=== PATIENT | female | born 1970 | race Caucasian/White ===

== ENCOUNTER 2018-09-26 15:59 | Emergency (ER) | payer OTHER, SELFPAY ==
[2018-09-26 16:00] VITALS: BP 143/84; PULSE 118; RESP 16; TEMP 36.3; O2SAT 100; BMI 23.6
--- NOTE | 2018-09-26 16:38 | EKG12_ITS ---
Test Reason : PALPS Blood Pressure : / mmHG Vent. Rate : 108 BPM Atrial Rate : 108 BPM P-R Int : 180 ms QRS Dur : 090 ms QT Int : 354 ms P-R-T Axes : 084 079 077 degrees QTc Int : 474 ms Sinus tachycardia Otherwise normal ECG Confirmed by PK GROVER, FARA ([id number]), telegraph editor IKE CASTELLANOS ([id number]) on 09/29/2018 1:13:43 PM Referred By: BARBARA Confirmed By:FARA WHITTINGTON MD
[2018-09-26 17:01] LABS: Absolute Lymphocyte Count 1.01 X10^3/ul (0.83-4.51); Absolute Neutrophil Count 13.3 X10^3/uL (2.0-7.7); Basophil# 0.02 X10^3/uL; Basophil% 0.1 % (0-1); Eosinophil# 0.01 X10^3/uL; Eosinophils% 0.1 % (0-5); Hematocrit 38.4 % (37-47); Hemoglobin 13.1 g/dl (12.0-15.0); Lymphocyte # 1.01 X10^3/ul (4.0); Lymphocyte % 6.7 % (19-41); Mean Corp Hgb Conc 34.1 g/gl (32-36); Mean Corpuscular Hgb 31.3 pg (27.0-32.0); Mean Corpuscular Volume 91.9 fL (81-99); Monocyte# 0.68 X10^3/uL; Monocyte% 4.5 % (0-10); Neutrophil # 13.28 X10^3/uL (2.7-7.7); Neutrophil % 88.4 % (47-70); Platelet Count 313 K/mm3 (150-450); RBC Distribution Width CV 12.8 % (11.6-14.6); RBC Distribution Width SD 42.7 fl (35.1-43.9); Red Blood Count 4.18 M/mm3 (4.2-5.4)
[2018-09-26 17:04] LABS: POSITIVE COUNT NO; POSITIVE DIFFERENTIAL NO; POSITIVE MORPHOLOGY NO
[2018-09-26 17:17] LABS: Anion Gap 5 (5-15); BUN 17 mg/dL (7-18); BUN/Creat Ratio 17.8 RATIO (10-20); Calcium,Total 8.7 mg/dL (8.5-10.1); Chloride 106 mmol/L (98-107); Creatinine, Serum 0.95 mg/dL (0.55-1.02); EST Glomerular Filtration Rate 67 mL/min (>60); Est Glom Filt Rate - Afr Amer 81 mL/min (>60); Estimated Creatinine Clearance 67.29 ml/min; Glucose 162 mg/dL (74-106); Potassium 3.7 mmol/L (3.5-5.1); Sodium Level 137 mmol/L (136-145)
--- NOTE | 2018-09-26 17:20 | RAD_ITS ---
STUDY: X-RAY CHEST REASON FOR EXAM: Female, 47 years old. Chest palpitations TECHNIQUE: AP COMPARISON: 12/17/2015 FINDINGS: The lungs are clear and expanded. There is no demonstrated pleural abnormality. Normal size heart. Normal mediastinum and adelina. Normal visualized pulmonary arteries. Normal visualized aortic arch and descending thoracic aorta. Normal visualized thoracic spine. Normal visualized ribs, clavicles, and shoulders. There is no demonstrated abnormality of the visualized soft tissue structures of the upper abdomen. RAD/Chest 1 View (Portable) IMPRESSION: Nonacute portable x-ray examination of the chest. Electronically Signed: Chu Canchola MD at 17:26 EDT , Service support ,
[2018-09-26 17:58] VITALS: BP 119/75; PULSE 87; RESP 21; O2SAT 100
--- NOTE | 2018-09-26 18:41 | CT_ITS ---
STUDY: CT BRAIN WITHOUT CONTRAST REASON FOR EXAM: Female, 47 years old. Confusion. RADIATION DOSAGE (If Supplied By Facility): CTDIvol = ( 44.99 ) mGy, DLP = ( 796.11 ) mGycm TECHNIQUE: Transaxial CT imaging of the brain was performed without administration of intravenous contrast material. Individualized dose optimization techniques were used for this CT. 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 Normal calvarium. Normal size ventricles and extra-axial spaces for the patient's age. Normal white matter tracts of the cerebral hemispheres. Normal basal ganglia and thalami. Normal brainstem. Normal cerebellum. There is no intracranial hemorrhage. There are no findings of an acute ischemic infarction. Normal visualized paranasal sinuses. CT/Brain/Head without Contrast IMPRESSION: No acute intracranial process. Electronically Signed: Cat Villaseñor MD at 19:19 EDT Tel , Service support ,
--- NOTE | 2018-09-26 18:42 | ED.VISSUMM ---
- ER Visit Summary Date of Service: 09/26/18 Chief Complaint: Palpitations History of Present Illness: The patient is a 47 F who presents for episode of palpitations with other symptoms. Patient states she has history of anxiety attacks that usually accompanied by palpitations. However today she started feeling her heart racing and skipping beats, and then she suddenly vomited without any prodrome. After vomiting she started to feel sluggish and slow, feeling like her speech was slurred. She felt drunk and like she was blacking out. Her was a witness and states that that is exactly the way she appeared. Symptoms would resolve after a couple minutes and then returned within several minutes. Patient vomited a few times, and had these episodes over approximately 4 hours. Patient did have a small amount alcohol to drink today. She did take a weight loss pill, burn pills, today. She has history of mitral valve prolapse. She has worn a Holter monitor in the past due to the MPV. Patient has also had history of migraines and has had an MRI approximately 10 years ago. Family history of brain cancer. Patient denies any drug or tobacco use. Physical Examination: Vital signs: afebrile, hemodynamically stable, no hypoxia on room air General: well nourished, well developed, in no distress Skin: warm, dry, no rash, no pallor HEENT: normocephalic and atraumatic; PERRL, EOMI, moist mucous membranes Cardiovascular: Tachycardic rate and rhythm without murmurs, no peripheral edema, 2+ pulses all distal extremities Respiratory: No increased work of breathing, lungs are clear to auscultation bilaterally, no rales, rhonchi or wheezing Abdominal: Abdomen is soft, nontender with normoactive bowel sounds, no guarding or rebound, no masses MSK: Moves all extremities, no deformities, normal strength Neuro: Awake and alert, oriented ?4. No facial droop, sensation and motor function intact and symmetric Test Results: Abnormal Lab Results 09/26/18 09/26/18 09/26/18 16:53 16:53 16:57 WBC 15.0 H RBC 4.18 L Hgb 13.1 Hct 38.4 MCV 91.9 MCH 31.3 MCHC 34.1 RDW 12.8 RDW Differential 42.7 Plt Count 313 MPV 9.0 Immature Gran % (Auto) 0.200 Neut % (Auto) 88.4 H Lymph % (Auto) 6.7 L [place] % (Auto) 4.5 Eos % (Auto) 0.1 Baso % (Auto) 0.1 Absolute Neuts (auto) 13.3 H Absolute Lymphs (auto) 1.01 Total Counted Not Reportable Sodium 137 Potassium 3.7 Chloride 106 Carbon Dioxide 26.0 Anion Gap 5 BUN 17 Creatinine 0.95 Estim Creat Clear Calc 67.29 Est GFR (MDRD) Af Amer 81 Est GFR (MDRD) Non-Af 67 BUN/Creatinine Ratio 17.8 Glucose 162 H Calcium 8.7 Troponin I < 0.015 TSH Ethyl Alcohol 6.0 09/26/18 16:57 WBC RBC Hgb Hct MCV MCH MCHC RDW RDW Differential Plt Count MPV Immature Gran % (Auto) Neut % (Auto) Lymph % (Auto) [place] % (Auto) Eos % (Auto) Baso % (Auto) Absolute Neuts (auto) Absolute Lymphs (auto) Total Counted Sodium Potassium Chloride Carbon Dioxide Anion Gap BUN Creatinine Estim Creat Clear Calc Est GFR (MDRD) Af Amer Est GFR (MDRD) Non-Af BUN/Creatinine Ratio Glucose Calcium Troponin I TSH 0.57 Ethyl Alcohol Clinical Impression(s) from Imaging Studies Chest X-Ray 09/26/18 17:20 IMPRESSION: Nonacute portable x-ray examination of the chest. Electronically Signed: Chu Canchola MD at 17:26 EDT , Service support , Brain CT 09/26/18 18:41 IMPRESSION: No acute intracranial process. Electronically Signed: Cat Villaseñor MD at 19:19 EDT Tel , Service support , Emergency Department Course and Treatment: Patient is well-appearing at time of evaluation, however her heart rate is noted to go up and down, becoming tachycardic when she is getting very involved in what she is saying. When relaxing it will return back to a baseline. Workup was performed, including TSH and alcohol level. Head CT was performed given the symptoms and patient's family history of brain cancer. Head CT showed no intracranial hemorrhage or obvious masses. CBC showed leukocytosis of 15 which may be due to meet D marginalization secondary to vomiting. Glucose was mildly elevated at 162. Otherwise labs are unremarkable. Alcohol negative. TSH within normal limits. Troponin negative. EKG showed a sinus tachycardia without any ischemic changes, ectopy or proarrhythmic morphology. On reevaluation patient's heart rate was 78 and she had no further episodes. She had no complaints at this time. We discussed the results of her workup, and she was offered admission for further workup of these episodes that sound most consistent with near syncope stated with palpitations today. Patient also is taking the new stimulant pills this week and took 2 today instead of 1. We discussed that these may be contributing to her symptoms today and she should stop taking them if she notices that they cause her palpitations. Patient declined admission and feels well enough to go home. She is to follow-up with her primary care doctor for further evaluation of the remittent palpitations that she has been having, that were worse today. Patient was told to return if she has any further concerning symptoms. She was discharged home in improved condition. Treatment Plan: [] Disposition: [] Impression: Palpitations, near syncopal episodes, history of anxiety attacks This note was generated with [employer] dictation software. It may contain incorrect words, spelling, and punctuation that were not noted in review of the chart prior to signing ED Disposition - Plan for ED Patient: Disposition: Home or Assisted Living Instructions: ED Palpitations, ED Near Syncope Unkn Referrals: Francisco J Bello MD [Primary Care Provider] - As soon as possible Additional Instructions: Please follow-up with your doctor as soon as possible, preferably within the week, for another evaluation of your recurrent palpitations and your symptoms of vomiting and feeling like you were blacking out today. If you have any further symptoms similar to this, please return immediately to the emergency department for another evaluation. Please pay attention to how the supplements you are taking affect you, as sometimes supplements can cause side effects, including increased anxiousness if it is a stimulant. If you have any worsening of your condition or any new concerning symptoms, please return immediately to the emergency department for another evaluation.
[2018-09-26 18:57] VITALS: BP 116/75; PULSE 83; RESP 26; O2SAT 100
[2018-09-26 19:22] LABS: Thyroid Stim Hormone (TSH) 0.57 uIU/mL (0.358-3.74)
[2018-09-26 20:33] VITALS: BP 110/69; PULSE 70; RESP 20; O2SAT 98
== END 2018-09-26 20:34 | disposition home or self-care (01) ==
PROVIDERS: Emergency Provider Emergency Medicine; Family Provider Family Medicine; PCP Family Medicine
DX: R00.2 Palpitations (principal); R55 Syncope and collapse; F41.0 Panic disorder [episodic paroxysmal anxiety]; I34.1 Nonrheumatic mitral (valve) prolapse; Z86.69 Personal history of other diseases of the nervous system and sense organs; Z80.8 Family history of malignant neoplasm of other organs or systems
CPT/HCPCS: 70450; 71045; 80048; 80320; 84443; 84484; 85025; 93005; 99284; A4216; G0480

== ENCOUNTER 2019-11-20 19:12 | Emergency (ER) | payer BC, SELFPAY ==
[2019-11-20 19:13] VITALS: BP 134/77; PULSE 88; RESP 16; TEMP 36.9; O2SAT 100; BMI 24.0
--- NOTE | 2019-11-20 20:33 | ED.VIS.BACK ---
History of Present Illness Chief Complaint: Back Informant: Patient Onset: Yesterday Chronic pain exacerbated by: twisting after being run into by a large dog Timing: Continuous Quality: Aching Location: Lumbar, Buttock, Right Leg Current Severity: Moderate Maximum Severity: Severe Worsened by: improves with: Movement, Ambulation, Bending Relieved by: Remaining Still - and lying supine Associated Symptoms: - - Patient down right lower extremity, to the foot and calf, throbbing. No numbness or tingling. No bowel or bladder dysfunction although she has noticed that when she sits to urinate it does take a while to start, but then she urinates without any other difficulty. No saddle anesthesia. Difficulty ambulating due to pain when she puts weight on her right lower extremity. Narrative: Patient has been dealing with back pain for a couple of months, and this same distribution. She has been on a couple courses of oral steroids, no back injections. Seen her PCP with this. Yesterday a large dog ran into her and made her twist, but she did not fall to the ground or have any direct trauma. She did not have any exacerbation of pain immediately, but noticed later when she bent over, she noticed that the pain suddenly got worse in her right low back and buttock. It is progressively gotten worse since then and today she has significant difficulty bearing weight on the right lower extremity and walking due to this pain. Same symptoms as before, just worse since the injury. Prior similar symptoms: With Prior Back Pain Past Medical History - Allergies and Home Meds Allergies/Adverse Reactions: Allergies No Known Allergies Allergy (Verified 11/20/19 19:18) Primary Care Physician: Francisco J Bello MD [Primary Care Provider] - Past Medical History: None Lives: Spouse/ Significant Other Smoking Status: Former smoker Review of Systems General: Denies: Chills, Fever, Sweats Eyes: Denies: Visual changes - bilaterally, Diplopia ENT: Denies: Rhinorrhea, Sore throat Cardiovascular: Denies: Chest pain, Palpitations Respiratory: Denies: Dyspnea, Cough, Dyspnea on exertion Gastrointestinal: Denies: Abdominal pain, Nausea, Vomiting, Diarrhea, Melena, Hematochezia Genitourinary: Denies: Dysuria, Hematuria, Frequency Musculoskeletal: Reports: Back pain, Extremity Pain Skin: Denies: Rash, Wounds Neurological: Denies: Headache, Weakness, Numbness Physical Exam Vital Signs/Narrative: Vital Signs Temp Pulse Resp BP Pulse Ox 11/20/19 19:13 98.5 F 88 16 134/77 H 100 Inital Vital Signs reviewed: Yes General: Well nourished, Well developed Head: Normocephalic, Atraumatic ENT: Moist mucous membranes, No rhinorrhea Neck: Supple, Nontender Cardiovascular: Regular rate, Regular rhythm, No murmurs Respiratory: No distress, CTA bilaterally, Chest nontender Abdomen: Soft, Nontender, Nondistended Back: Normal Inspection, Nontender, Positive SLR - Right - Creates pain into her calf, feels like tightness and throbbing, no paresthesias or toe/foot pain, Negative SLR - Left. Negative for: Spinal tenderness Extremeties: Nontender, No edema Skin: Normal color, No rash Neuro: Alert, Oriented, Normal Strength, Normal Sensation, Normal DTR, Normal Gait, Normal Reflexes - Symmetrically hyporeflexive at both knees otherwise normal, - - Downgoing toes bilaterally. No clonus. Psychological: Normal affect, Normal Mood Diagnostic/Tx/Re-eval - Medical Decision Making Patient does not appear to have any neurologic compromise. Her motor function of her both lower extremities are is normal. I feel comfortable treating her symptoms at this time with analgesics and prescriptions, she is to follow-up with her doctor, we discussed reasons to return. She is comfortable with that plan. ED Disposition - Plan for ED Patient: Disposition: Home or Assisted Living Diagnosis: Sciatica, right side Instructions: ED Back Pain Acute or Chronic Prescriptions: cycloBENZAPRine HCl [Flexeril] 10 mg PO TID PRN #20 tab PRN Reason: Muscle Spasm Transmission Status: Pending to [facility] Hydrocodone Bitart/Apap 5-325 [Rollins 5MG-325MG] 1 tablet PO Q4H PRN PRN 2 Days #12 tablet PRN Reason: Pain Transmission Status: Sent to [facility] Referrals: Francisco J Bello MD [Primary Care Provider] - 3-5 Days if not improving
[2019-11-20] MEDS: Ondansetron ODT 4 MG Tablet 8 MG PO (20:51)
[2019-11-20] MEDS: Ketorolac 30 MG/ML Syringe IM (20:53)
[2019-11-20] MEDS: Orphenadrine 60 MG/2 ML Ampul IM (20:56)
[2019-11-20] MEDS: Morphine 4 MG/ML Syringe IM (21:00)
[2019-11-20 21:47] VITALS: BP 121/82; PULSE 91; RESP 16; O2SAT 98
== END 2019-11-20 21:51 | disposition home or self-care (01) ==
PROVIDERS: Emergency Provider Emergency Medicine; PCP Family Medicine
DX: M54.31 Sciatica, right side (principal); Z87.891 Personal history of nicotine dependence
CPT/HCPCS: 96372; 99283

== ENCOUNTER 2019-12-17 09:00 | Outpatient (RCR) | payer BC, SELFPAY ==
--- NOTE | 2019-12-03 07:56 | HP.PTEVAL_ITS ---
Patient's Visit Information JOVANA LASSITER is a 49 year old F referred to Physical Therapy by Dr. Francisco J Bello MD with a diagnosis of Lumbar spine pain, R LE pain. Date of Evaluation: 12/01/19 Physical Therapist: Steve Ramires DPT - Visit Plan Frequency: 2x /Week Duration: 4-6 Weeks Plan: Start with extension progression, add in manual mobs PA. Progress to core stability exercise as tolerated. - Subjective Pt. is here today for her initial evaluation with diagnosis of low back pain, R leg pain. Pt. reports ahving pain for ~4 weeks now. She initially went to a chiropractor which started to help, but has now made it worse. Pt. reports in creased pain with sitting, better with walking. Difficulty with bending over. Pt. has pain down her R leg to her calf today, but has gone to her foot at times. Pt. reports occassional N/T as well. No change in B and B and no saddle region pain. Pt. reports no muscle weakness, but does walk with a limp in her R side. Pt. is hopeful to reduce symptoms in order to get back to all recreational activities and lifting without limitations. - Pain Lumbar spine Pain Intensity (Out of 10): 3 Pain Intensity Range: 0, 5 RLE Pain Intensity (Out of 10): 3 Pain Intensity Range: 1, 7 - Objective POSTURE: Pt. has general flexed posture, difficulty to stand with erect posture. pt. has rounded shoulders, no visible lateral shift. PALPATION: Pt. has hypombility at L4/L5, tender in this region as well. Pt. has no pain to palpation of posterior thigh. NEURO: Pt. has normal DTR and normal sensation. ROM: Lumbar spine: flexion mod loss increase NW, ext mod loss decrease better, SB no effect full ROM, rotation mod loss bilat Ne. Normal hip ROM without increase in symptoms. MMT: RLE- ankle 5/5 throughout; knee- ext 4/5, flexion 4+/5. HIp- flexion 4/5 increase NW, abd 4+/5 NE. LLE- 5/5 throughout. Core strength- fair increase NW. GAIT: pt. has antalgic pattern dureing R stnace phase. Flexed posture. Pt. unable to stand fully erect. - Special Tests L/S Slump test left side: Negative L/S Slump test right side: Positive L/S Left Straight Leg Raise: Negative L/S Right Straight Leg Raise: Positive Lumbar Standing: Flexion - Mechanical Response: No effect Lumbar Standing: Flexion - Symptoms During Testing: Increases Lumbar Standing: Flexion - Symptoms After Testing: Peripheralized Lumbar Standing: Extension - Mechanical Response: Increases motion Lumbar Standing: Extension - Symptoms During Testing: Centralizing Lumbar Standing: Extension - Symptoms After Testing: Better Lumbar Lying: Extension - Mechanical Response: Increases motion Lumbar Lying: Extension - Symptoms During Testing: Centralizing Lumbar Lying: Extension - Symptoms After Testing: Better - Goals Goal 1:: LTG: Pt. to be I with HEP. Goal Time Frame: 4-6 Weeks Goal 2:: STG: Pt. to walk unlimited distances without increase in symptoms. Goal Time Frame: 2-4 Weeks Goal 3:: STG: Pt. to have full ROM of lumbar spine without increase in symptoms. Goal Time Frame: 2-4 Weeks Goal 4:: LTG: pt. to get back to all recreational and work activities without increase in symptoms. Goal Time Frame: 4-6 Weeks Goal 5:: LTG: pt. to have increased BLE and core strength by 1/2 grade of all effected musculature. Goal Time Frame: 4-6 Weeks - Rehabilitation Potential Physical Therapy Diagnosis: Pt. has signs and symptoms consistent with radiating low back pain down her RLE. Pt. has good response with extension progression this date, centralizing symptoms and no symptoms with walking. Pt. was slightly sore when leaving, but no longer was walking with antalgic pattern. Pt. would benefit from PT to increase ROM, decrease her pain and progress back to recreational activities. Rehabilitation Potential: Excellent - Anticipated Interventions Patient/Client Instruction: Educate patient on: Condition, Plan of Care, Risk Factors, Benefits of Fitness Program For the Purpose of:: To facilitate caregiver knowledge, To improve self management, To prevent re-injury, To improve ability to perform tasks related to life management, To improve tolerance to ADL's Therapeutic Exercise to Include: Strength training, Power training, Endurance training, Postural training, Flexibilty training, Gait and locomotor training, Passive ROM, Active ROM, Dynamic Lumbar Stabilization, [place] Exercises For the Purpose of:: To decrease pain, To decrease swelling/inflammation, To increase ROM, To improve nutrient delivery to tissue, To increase oxygenation perfusion, To improve muscle performance and motor function, To improve ability to perform ADL's, To increase tolerance to activity/condition/position, To improve performance and independence with ADL's, To decrease level of supervision to perform tasks, To improve ability of physical actions for home/community/work/leisure, To improve gait and locomotor functions, To improve health of tissue, To decrease soft tissue restriction Manual Therapy Techniques to Include: Mobilization, Manipulation, Functional dry needling, Soft tissue mobilization For the Purpose of:: To decrease pain, To decrease swelling/inflammation, To increase ROM, To improve nutrient delivery to tissue, To increase oxygenation perfusion, To improve muscle performance and motor function, To improve ability to perform ADL's, To increase tolerance to activity/condition/position, To improve health of tissue, To decrease soft tissue restriction, To increase flexibility/ROM Thank you for the opportunity to evaluate your patient. For Medicare and Medicare HMO plans, please review the plan of care and approve it. It will need to be FAXED BACK to us at [phone] for Medicare purposes. For Medicare only, by signing this I certify the plan of care. Please let me know if there are questions or concerns regarding this plan of care. Physician Signature: Date:
== END 2019-12-17 19:00 ==
LOC: PT 09:00
PROVIDERS: PCP Family Medicine; Referring Provider Family Medicine; Visit Provider Family Medicine
DX: M79.604 Pain in right leg (principal); S39.012D Strain of muscle, fascia and tendon of lower back, subsequent encounter
CPT/HCPCS: 97110; 97161